=== PATIENT | female | born 1995 | race Caucasian/White ===

== ENCOUNTER 2019-01-07 03:05 | Emergency (ER) | payer OTHER, SELFPAY ==
[2019-01-07 04:12] VITALS: BP 130/80; PULSE 80; TEMP 36.6; O2SAT 98; BMI 24.2
[2019-01-07 04:18] VITALS: BP 130/80; PULSE 80; TEMP 36.6; O2SAT 98; BMI 24.2
[2019-01-07 05:38] VITALS: BP 133/88; PULSE 80; RESP 20; O2SAT 98
--- NOTE | 2019-01-07 05:42 | ED.SKABFB ---
HPI - Skin/Abscess/Foreign Bdy General Chief complaint: Extremity Injury, Upper Stated complaint: spider bite right forearm Time Seen by Provider: 01/07/19 05:42 Source: patient Mode of arrival: ambulatory Limitations: no limitations History of Present Illness HPI narrative: Patient is a 23-year-old female who presents with right forearm spider bite. She says she was asleep woke up with a spider bit her. They were actually able to catch the spider and they brought in. Does not appear to be a brown recluse or a black . She has pain at the site of puncture. There is no erythema small bruise. complaint: lesion Onset (ago): minute(s) Location: RUE Related Data Allergies Allergy/AdvReac Type Severity Reaction Status Date / Time No Known Drug Allergies Allergy Verified 01/07/19 04:14 Review of Systems Review of Systems GENERAL: Denies chills,fever HEENT: Denies throat pain RESPIRATORY: Denies dyspnea, cough, wheezing CARDIOVASCULAR: Denies chest pain, palpitations GASTROINTESTINAL: Denies nausea, vomiting MUSCULOSKELETAL: Denies extremity pain, injury SKIN: See HPI NEUROLOGIC: Denies weakness, dizziness, headache, numbness 8 point review of systems is negative except for those stated above and HPI PFSH Medical History Patient denies significant medical history (Acute) Social History Smoking Status: Never smoker alcohol intake: never substance use type: does not use Social History Smoking Status: Never smoker alcohol intake: never substance use type: does not use Exam Initial Vital Signs Initial Vital Signs: Vital Signs Temperature 98 F 01/07/19 04:12 Pulse Rate 80 01/07/19 04:12 Blood Pressure 130/80 01/07/19 04:12 Pulse Oximetry 98 01/07/19 04:12 GENERAL: Well-appearing, well-nourished and in no acute distress. CARDIOVASCULAR: peripheral pulses in tact, cap refill <2 sec RESPIRATORY: No respiratory distress, speaks in full sentences without difficulty EXTREMITIES: Normal range of motion, no clubbing or edema. Neurovascularly intact NEUROLOGICAL: Cranial nerves II through XII grossly intact. Normal gait and speech. SKIN: Right forearm small contusion were spider bit her. No erythema no fluctuation no streaking Course Vital Signs - 8 hr 01/07/19 04:12 01/07/19 04:18 01/07/19 05:38 Temperature 98 F 98 F Pulse Rate 80 80 80 Respiratory Rate 20 Blood Pressure 130/80 130/80 Blood Pressure [Right Arm] 133/88 Pulse Oximetry 98 98 98 Discharge Plan Departure Patient Disposition: Home Clinical Impression: Insect bite Qualifiers: Encounter type: initial encounter Site of insect bite: forearm Laterality: right Qualified Code(s): S50.861A - Insect bite (nonvenomous) of right forearm, initial encounter Instructions: Insect Bites and Stings Activity Restrictions/Additional Instructions: *You have been diagnosed with insect bite *What to do: Ice 20 min at a time if needed to help with swelling, elevate also to help with swelling *Continue to take medications as directed Motrin 600 mg every 6-8 hours needed for pain *Follow up with your primary care provider in 2-3 days *Return to ER if you should have increasing redness, increasing pain, weakness in hand or any new, worsening or concerning symptoms Referrals: [facility] [Provider Group]
--- NOTE | 2019-01-07 06:59 | PC.NURSE ---
SHE WAS BIT BY A SPIDER AT JUST BEFORE ARRIVAL HERE.HER RIGHT FOREARM HAS AN AREA OF SLIGHT PINK DISCOLORATION.NO DIFFICULTY BREATHING OR SWALLOWING.
== END 2019-01-07 05:57 | disposition home or self-care (01) ==
PROVIDERS: Emergency Provider Emergency Medicine
DX: S50.861A Insect bite (nonvenomous) of right forearm, initial encounter (principal)
CPT/HCPCS: 99282

== ENCOUNTER 2020-01-11 11:09 | Emergency (ER) | payer OTHER, SELFPAY ==
[2020-01-11 11:15] VITALS: BP 149/76; PULSE 73; RESP 20; TEMP 35.8; O2SAT 99; BMI 30.7
--- NOTE | 2020-01-11 11:25 | DI.RAD.S_ITS ---
PROCEDURE: XR ACUTE ABDOMEN SERIES INDICATIONS: abd pain TECHNIQUE: One view chest and two views of the abdomen were acquired. COMPARISON: [facility], CT, IVP (ABD & PEL WWO CONTRAST), 01/06/2013, 12:59. FINDINGS: Surgical changes and devices: None. Chest: Lungs are clear. Heart size is normal. No pleural effusions. No pneumoperitoneum. Abdomen: Bowel gas pattern is normal. No suspicious calcifications. Visualized solid organ contours appear normal. Bones: No suspicious bony lesions. IMPRESSION: No acute cardiopulmonary abnormality. Nonobstructive bowel gas pattern. Dictated by: Henok Young M.D. on 01/11/2020 at 12:19 Approved by: Henok Young M.D. on 01/11/2020 at 12:21
--- NOTE | 2020-01-11 11:28 | ED.ABDPAIN ---
HPI - Abdominal Pain <MIRTA Jung - Last Filed: 01/11/20 17:08> General Chief Complaint: Abdominal Pain Stated Complaint: throwing up for week,acute stomach pain Time Seen by Provider: 01/11/20 11:11 Source: patient and family Mode of arrival: Ambulatory Limitations: no limitations History of Present Illness HPI narrative: The patient is a 24-year-old female nonsmoker with history of abdominal pain who presents with a chief complaint of 6 months of nausea vomiting and epigastric pain. She states that has been worse over the past week. She has previously diagnosed with an ulcer, has an order for an endoscope pending and she has not followed that yet. She has tried heat, Protonix at home. She has not taken anything for nausea. She denies any diarrhea or constipation. She states she is not able to keep anything down. She has not been taking her Protonix. She complains of dysuria for the past week, denies possibility of . States that her pain is in the epigastric area, but then encompasses her entire abdomen. She states it radiates to her back. She denies any chest pain or shortness of breath. She has not followed up with primary care provider the past week. She states that she was seen at [facility] a month ago for similar complaints. She denies any history of abdominal surgeries, states she does have a history of ovarian cyst. Related Data Home Medications Medication Instructions Recorded Confirmed bupropion HCl [Wellbutrin XL] 300 mg PO QAM 01/11/20 01/11/20 pantoprazole [Protonix] 20 mg PO DAILY 01/11/20 01/11/20 sertraline 25 mg PO DAILY 01/11/20 01/11/20 Previous Rx's Medication Instructions Recorded nitrofurantoin monohyd/m-cryst 100 mg PO Q12H 7 Days #14 cap 01/11/20 [Macrobid] ondansetron 4 mg PO Q6H PRN #14 tab 01/11/20 sucralfate [Carafate] 10 ml PO QACHS 10 Days #400 ml 01/11/20 Allergies Allergy/AdvReac Type Severity Reaction Status Date / Time Androgenic Anabolic Steroid AdvReac Verified 01/11/20 11:15 Review of Systems <MIRTA Jung - Last Filed: 01/11/20 17:08> Review of Systems Narrative: GENERAL: Denies chills, fatigue, malaise, fever, sweats. HEENT: Denies sinus pain, ear pain, sore throat, difficulty swallowing, dizziness. RESPIRATORY: Denies dyspnea, cough, wheezing, hemoptysis, sputum. CARDIOVASCULAR: Denies chest pain, palpitations, orthopnea, edema, GASTROINTESTINAL: See HPI : See HPI MUSCULOSKELETAL: denies weakness, joint pain, or bony pain SKIN: Denies rash, skin lesions, or other NEUROLOGIC: Denies weakness, headache, numbness, change in speech, confusion, seizures, incoordination. PSYCHIATRIC: No concerning psychosocial issues. 12 point review of systems is negative except for those stated above Patient History <MIRTA Jung - Last Filed: 01/11/20 17:08> Medical History (Updated 01/11/20 @ 15:35 by MIRTA Jung) History of ovarian cyst (Acute) Nausea and vomiting in adult (Acute) Patient denies significant medical history (Acute) Surgical History (Updated 01/11/20 @ 11:32 by MIRTA Jung) Hx of tonsillectomy (Acute) Social History (Updated 01/07/19 @ 05:45 by Suha Mata DO) Smoking Status: Never smoker alcohol intake: never substance use type: does not use Smoking Status: Never smoker alcohol intake frequency: 0-2 drinks per day Substance Use Type: does not use Exam <MIRTA Jung - Last Filed: 01/11/20 17:08> Narrative Exam Narrative: GENERAL: This is a well-nourished, well-developed patient, appears uncomfortable HEAD: Atraumatic. Normocephalic. No temporal or scalp tenderness. EYES: Pupils equal round and reactive. Extraocular motions intact. No scleral icterus. No injection or drainage. ENT: Nose without bleeding, purulent drainage or septal hematoma. Throat without erythema, tonsillar hypertrophy or exudate. Uvula midline. Airway patent. NECK: Trachea midline. No JVD or lymphadenopathy. Supple, nontender, no meningeal signs. CARDIOVASCULAR: Regular rate and rhythm RESPIRATORY: Clear to auscultation. Breath sounds equal bilaterally. No wheezes, rales, or rhonchi. No cough. No increased respiratory effort. No accessory muscle use. GASTROINTESTINAL: Abdomen soft, diffusely tender to palpation all 4 quadrants. Significant tenderness to epigastric palpation., nondistended. No hepato-splenomegaly, or palpable masses. No guarding. Active bowel sounds all 4 quadrants EXTREMITIES: No clubbing, cyanosis, or edema. No joint tenderness, effusion, or edema noted. BACK: Nontender without deformity or crepitance. No flank tenderness. NEURO: AOx3. SKIN: No rash or erythema on visible skin Initial Vital Signs Initial Vital Signs: Vital Signs Temperature 96.4 F L 01/11/20 11:15 Pulse Rate 73 01/11/20 11:15 Respiratory Rate 01/11/20 11:15 Blood Pressure 149/76 H 01/11/20 11:15 Pulse Oximetry 99 01/11/20 11:15 <Antonio Kim DO - Last Filed: 01/11/20 17:36> Initial Vital Signs Initial Vital Signs: Vital Signs Temperature 96.4 F L 01/11/20 11:15 Pulse Rate 73 01/11/20 11:15 Respiratory Rate 01/11/20 11:15 Blood Pressure 149/76 H 01/11/20 11:15 Pulse Oximetry 99 01/11/20 11:15 Course <MIRTA Jung - Last Filed: 01/11/20 17:08> Orders Ordered: ED Orders 01/11/20 11:23 EKG-12 Lead Stat 01/11/20 11:25 XR acute abdomen series Stat 01/11/20 11:37 Amylase Stat Complete Blood Count AUTO DIFF Stat Comprehensive Metabolic Panel Stat Lipase Stat 01/11/20 12:35 Urine Culture Stat Urine Microscopic Stat 01/11/20 13:05 CT abdomen pelvis w con Stat Discontinued Medications Al Hydrox/Mg Hydrox/Simethicone 20 ml/ Lidocaine HCl 15 ml 0 ml PO NOW ONE Stop: 01/11/20 12:36 Last Admin: 01/11/20 12:43 Dose: 35 ml Documented by: RENÉ Sodium Chloride (Normal Saline 0.9%) 1,000 mls @ 1,000 mls/hr IV BOLUS ONE Stop: 01/11/20 12:32 Last Infusion: 01/11/20 14:17 Dose: 0 mls/hr Documented by: Admin: 01/11/20 11:58 Dose: 1,000 mls/hr Documented by: RENÉ Ketorolac Tromethamine (Toradol) 30 mg IV NOW ONE Stop: 01/11/20 14:48 Last Admin: 01/11/20 14:52 Dose: 30 mg Documented by: RENÉ Metoclopramide HCl (Reglan) 10 mg IV NOW ONE Stop: 01/11/20 13:20 Ondansetron HCl (Zofran) 4 mg IV NOW ONE Stop: 01/11/20 11:24 Last Admin: 01/11/20 12:04 Dose: 4 mg Documented by: RENÉ Ondansetron HCl (Zofran) 4 mg IV NOW ONE Stop: 01/11/20 12:49 Last Admin: 01/11/20 14:13 Dose: Not Given Documented by: RENÉ Pantoprazole Sodium (Protonix) 40 mg IV NOW ONE Stop: 01/11/20 11:25 Last Admin: 01/11/20 12:04 Dose: 40 mg Documented by: RENÉ Sucralfate (Carafate) 1 gm PO NOW ONE Stop: 01/11/20 13:20 Last Admin: 01/11/20 13:43 Dose: 1 gm Documented by: RENÉ Vital Signs Vital signs: Vital Signs - 8 hr 01/11/20 11:15 01/11/20 13:22 01/11/20 15:49 Temperature 96.4 F L Pulse Rate 73 72 66 Respiratory Rate 20 16 16 Blood Pressure 149/76 H 141/83 H Blood Pressure [Right Arm] 150/80 H Pulse Oximetry 99 100 99 <Antonio Kim DO - Last Filed: 01/11/20 17:36> Orders Ordered: ED Orders 01/11/20 11:23 EKG-12 Lead Stat 01/11/20 11:25 XR acute abdomen series Stat 01/11/20 11:37 Amylase Stat Complete Blood Count AUTO DIFF Stat Comprehensive Metabolic Panel Stat Lipase Stat 01/11/20 12:35 Urine Culture Stat Urine Microscopic Stat 01/11/20 13:05 CT abdomen pelvis w con Stat Discontinued Medications Al Hydrox/Mg Hydrox/Simethicone 20 ml/ Lidocaine HCl 15 ml 0 ml PO NOW ONE Stop: 01/11/20 12:36 Last Admin: 01/11/20 12:43 Dose: 35 ml Documented by: RENÉ Sodium Chloride (Normal Saline 0.9%) 1,000 mls @ 1,000 mls/hr IV BOLUS ONE Stop: 01/11/20 12:32 Last Infusion: 01/11/20 14:17 Dose: 0 mls/hr Documented by: Admin: 01/11/20 11:58 Dose: 1,000 mls/hr Documented by: RENÉ Ketorolac Tromethamine (Toradol) 30 mg IV NOW ONE Stop: 01/11/20 14:48 Last Admin: 01/11/20 14:52 Dose: 30 mg Documented by: RENÉ Metoclopramide HCl (Reglan) 10 mg IV NOW ONE Stop: 01/11/20 13:20 Ondansetron HCl (Zofran) 4 mg IV NOW ONE Stop: 01/11/20 11:24 Last Admin: 01/11/20 12:04 Dose: 4 mg Documented by: RENÉ Ondansetron HCl (Zofran) 4 mg IV NOW ONE Stop: 01/11/20 12:49 Last Admin: 01/11/20 14:13 Dose: Not Given Documented by: RENÉ Pantoprazole Sodium (Protonix) 40 mg IV NOW ONE Stop: 01/11/20 11:25 Last Admin: 01/11/20 12:04 Dose: 40 mg Documented by: RENÉ Sucralfate (Carafate) 1 gm PO NOW ONE Stop: 01/11/20 13:20 Last Admin: 01/11/20 13:43 Dose: 1 gm Documented by: RENÉ Vital Signs Vital signs: Vital Signs - 8 hr 01/11/20 11:15 01/11/20 13:22 01/11/20 15:49 Temperature 96.4 F L Pulse Rate 73 72 66 Respiratory Rate 20 16 16 Blood Pressure 149/76 H 141/83 H Blood Pressure [Right Arm] 150/80 H Pulse Oximetry 99 100 99 MDM - Abdominal Pain <MIRTA Jung - Last Filed: 01/11/20 17:08> Lab Data Result diagrams: 01/11/20 11:37 01/11/20 11:37 Labs: Lab Results 01/11/20 01/11/20 01/11/20 Range/Units 11:37 11:37 12:35 WBC 7.4 (4.5-11.0) X10^3/uL RBC 4.50 (4.0-5.2) X10^6/uL Hgb 13.2 (12.0-16.0) g/dL Hct 38.7 (36-46) % MCV 86.1 (80-100) fL MCH 29.4 (26-34) PG MCHC 34.2 (30-36) % RDW 12.8 (11.6-14.8) % Plt Count 360 (150-400) X10^3/uL Neut % (Auto) 67.1 (50-75) % Lymph % (Auto) 25.8 (25-40) % Galax % (Auto) 6.7 (3-14) % Eos % (Auto) 0.0 L (2-4) % Baso % (Auto) 0.4 (0-2) % Neut # (Auto) 4900 (1662-2033) /uL Lymph # (Auto) 1900 (1441-1089) /uL Galax # (Auto) 500 (0-900) /uL Eos # (Auto) 0 (0-450) /uL Baso # (Auto) 0 (0-100) /uL Sodium 137 (137-145) mmol/L Potassium 3.7 (3.4-5.1) mmol/L Chloride 106 (98-107) mmol/L Carbon Dioxide 23 (22-32) mmol/L BUN 10 (7-17) mg/dL Creatinine 0.55 (0.52-1.04) mg/dL Estimated GFR > 60.0 (>60) mL/min BUN/Creatinine Ratio 18.2 (6-22) Glucose 98 (70-100) mg/dL Calcium 9.4 (8.4-10.2) mg/dL Total Bilirubin 0.8 (0.2-1.3) mg/dL AST 25 (14-36) IU/L ALT 17 (<35) IU/L Alkaline Phosphatase 74 (38-126) U/L Total Protein 7.9 (6.3-8.2) g/dL Albumin 4.6 (3.5-5.0) g/dL Globulin 3.3 (1.7-4.1) g/dL Albumin/Globulin Ratio 1.4 (1.0-2.8) Amylase 49 (30-110) U/L Lipase 32 (23-300) U/L Urine RBC 10-30/hpf H (0-5/HPF) Urine WBC 1-5/hpf (0-5/HPF) Ur Squamous Epith Cells 1-5 /hpf (0-5/HPF) Urine Bacteria Moderate (10-30) H (None) Ur Culture Indicated? Specimen cultured Point of care testing: Point of Care Testing Test Results Negative Urine Dip Bedside Urine Glucose Negative Bedside Urine Bilirubin - Negative Bedside Urine Ketone + 15 Urine Specific Welch 1.015 Bedside Urine Occult Blood ++ Bedside Urine pH 7.0 Bedside Urine Protein +/- 15 Bedside Urine Urobilinogen - Negative Bedside Urine Nitrite - Negative Bedside Urine Leukocytes +/- 15 Esterase Imaging Data Abdominal x-ray: Radiologist's Impression: [address] [place] [id number] XRay Report Signed Patient: Uzma Roy [facility]#: [id number] : 1995Acct:[id number] Age/Sex: 24 / FDate of Service: 01/11/20 Loc: ED Accession Number: [id number] Procedure: XR acute abdomen series Ordering Provider: Bisi Clements PROCEDURE: XR ACUTE ABDOMEN SERIES INDICATIONS: abd pain TECHNIQUE: One view chest and two views of the abdomen were acquired. COMPARISON: [facility], CT, IVP (ABD & PEL WWO CONTRAST), 01/06/2013, 12:59. FINDINGS: Surgical changes and devices: None. Chest: Lungs are clear. Heart size is normal. No pleural effusions. No pneumoperitoneum. Abdomen: Bowel gas pattern is normal. No suspicious calcifications. Visualized solid organ contours appear normal. Bones: No suspicious bony lesions. IMPRESSION: No acute cardiopulmonary abnormality. Nonobstructive bowel gas pattern. Dictated by: Henok Young M.D. on 01/11/2020 at 12:19 Approved by: Henok Young M.D. on 01/11/2020 at 12:21 CT scan - abdomen/pelvis: Radiologist's Impression: [address] [address] [address] Scan Report Signed Patient: Uzma Roy [facility]#: [id number] : 1995Acct:[id number] Age/Sex: 24 / FDate of Service: 01/11/20 Loc: ED Accession Number: [id number] Procedure: CT abdomen pelvis w con Ordering Provider: Bisi Clements PROCEDURE: CT ABDOMEN PELVIS W CON INDICATIONS: epigastric pain, vomiting TECHNIQUE: After the administration of intravenous contrast, 5 mm thick sections acquired from the diaphragm to the symphysis. 5 mm coronal and sagittal reformats were acquired. For radiation dose reduction, the following was used: automated exposure control, adjustment of mA and/or kV according to patient size. COMPARISON: None. FINDINGS: Image quality: Excellent. ABDOMEN: Lung bases: Lung bases are clear. Heart size is normal. Solid organs: Liver is normal in size and enhancement. Gallbladder is unremarkable. Biliary system is non dilated. Pancreas enhances normally. Spleen is normal in size and enhancement. No adrenal nodules. Kidneys demonstrate normal size and enhancement, without hydronephrosis. Peritoneum and bowel: Bowel loops demonstrate normal wall thickness and caliber. No free fluid or air. The appendix is normal in caliber. Nodes and vessels: No retroperitoneal or mesenteric adenopathy by size criteria. Aorta and inferior vena cava are normal in size. Right hepatic artery is replaced to the SMA, variant. Miscellaneous: No ventral hernias. PELVIS: Genitourinary: Bladder is partially decompressed. Uterus is unremarkable. No free fluid. Miscellaneous: No inguinal hernias or adenopathy. Bones: No suspicious bony lesions. No vertebral body compression fractures. IMPRESSION: No acute inflammatory process identified. No free fluid. No bowel obstruction. Dictated by: Henok Young M.D. on 01/11/2020 at 13:37 Approved by: Henok Young M.D. on 01/11/2020 at 13:52 ECG Data Attestation: I personally reviewed and interpreted this ECG as follows: Interpretation: Ventricular rate 64. P.r. interval 158. QRS 94. No ectopy noted. Viewed by Dr. Judy PARRA Narrative Medical decision making narrative: The patient is a 24-year-old female who presents with a chief complaint of epigastric pain as well as nausea and vomiting, inability keep down fluids. She has normal images, grossly normal lab work, given the significance of pain on exam, I did obtain a CT which showed no acute findings. She feels much improved after the above-stated therapies. She is able to tolerate p.o. fluid and foods. I discussed at length dietary modifications, monitoring stress, decreasing acid in diet. Discussed at length the importance of following up with primary care provider. She does have signs of urinary tract infection with leukocyte esterase and bacteria in her urine as well as dysuria, so we started her on antibiotics. Urine cultures pending at this time. Patient has no questions or concerns upon discharge and states understanding return precautions as well as follow-up care. <Antonio Kim, DO - Last Filed: 01/11/20 17:36> Lab Data Labs: Lab Results 01/11/20 01/11/20 01/11/20 Range/Units 11:37 11:37 12:35 WBC 7.4 (4.5-11.0) X10^3/uL RBC 4.50 (4.0-5.2) X10^6/uL Hgb 13.2 (12.0-16.0) g/dL Hct 38.7 (36-46) % MCV 86.1 (80-100) fL MCH 29.4 (26-34) PG MCHC 34.2 (30-36) % RDW 12.8 (11.6-14.8) % Plt Count 360 (150-400) X10^3/uL Neut % (Auto) 67.1 (50-75) % Lymph % (Auto) 25.8 (25-40) % Galax % (Auto) 6.7 (3-14) % Eos % (Auto) 0.0 L (2-4) % Baso % (Auto) 0.4 (0-2) % Neut # (Auto) 4900 (1678-3871) /uL Lymph # (Auto) 1900 (1080-4279) /uL Galax # (Auto) 500 (0-900) /uL Eos # (Auto) 0 (0-450) /uL Baso # (Auto) 0 (0-100) /uL Sodium 137 (137-145) mmol/L Potassium 3.7 (3.4-5.1) mmol/L Chloride 106 (98-107) mmol/L Carbon Dioxide 23 (22-32) mmol/L BUN 10 (7-17) mg/dL Creatinine 0.55 (0.52-1.04) mg/dL Estimated GFR > 60.0 (>60) mL/min BUN/Creatinine Ratio 18.2 (6-22) Glucose 98 (70-100) mg/dL Calcium 9.4 (8.4-10.2) mg/dL Total Bilirubin 0.8 (0.2-1.3) mg/dL AST 25 (14-36) IU/L ALT 17 (<35) IU/L Alkaline Phosphatase 74 (38-126) U/L Total Protein 7.9 (6.3-8.2) g/dL Albumin 4.6 (3.5-5.0) g/dL Globulin 3.3 (1.7-4.1) g/dL Albumin/Globulin Ratio 1.4 (1.0-2.8) Amylase 49 (30-110) U/L Lipase 32 (23-300) U/L Urine RBC 10-30/hpf H (0-5/HPF) Urine WBC 1-5/hpf (0-5/HPF) Ur Squamous Epith Cells 1-5 /hpf (0-5/HPF) Urine Bacteria Moderate (10-30) H (None) Ur Culture Indicated? Specimen cultured Point of care testing: Point of Care Testing Test Results Negative Urine Dip Bedside Urine Glucose Negative Bedside Urine Bilirubin - Negative Bedside Urine Ketone + 15 Urine Specific Welch 1.015 Bedside Urine Occult Blood ++ Bedside Urine pH 7.0 Bedside Urine Protein +/- 15 Bedside Urine Urobilinogen - Negative Bedside Urine Nitrite - Negative Bedside Urine Leukocytes +/- 15 Esterase Discharge Plan Departure Patient Disposition: Home Clinical Impression: Nausea and vomiting in adult Abdominal pain Qualifiers: Abdominal location: epigastric Qualified Code(s): R10.13 - Epigastric pain UTI (urinary tract infection) Qualifiers: Urinary tract infection type: site unspecified Hematuria presence: with hematuria Qualified Code(s): N39.0 - Urinary tract infection, site not specified Discharge Date/Time: 01/11/20 15:48 Instructions: DI for Urinary Tract Infection (UTI), DI for Abdominal Pain-Adult, DI for Nausea -- Adult, DI for Vomiting -- Adult Activity Restrictions/Additional Instructions: Thank you for trusting us with your care today. I sent 3 prescriptions to [facility] in [place]. One is an antibiotic for your urinary tract infection. Please take the whole course. Urine cultures pending at this time. If we need to change antibiotics we will call you. I also sent him prescriptions of nausea medications as well as Carafate, which helps reduce the acid in her stomach. Please be very careful regarding your diet. Please be careful for acidic foods, spicy foods, deep fried foods, fatty foods as these can all irritate her stomach. Also be careful with stress. Please follow-up with primary care provider in the next few days. Please come back to the emergency department for any acute concerns such as inability keep down fluids, abdominal pain with fever etcetera Prescriptions: New ondansetron 4 mg tablet,disintegrating 4 mg PO Q6H PRN (Reason: nausea and vomiting) Qty: 14 RF: 0 sucralfate [Carafate] 100 mg/mL suspension 10 ml PO QACHS 10 Days Qty: 400 RF: 0 nitrofurantoin monohyd/m-cryst [Macrobid] 100 mg capsule 100 mg PO Q12H 7 Days Qty: 14 RF: 0 No Action pantoprazole [Protonix] 20 mg Tablet,Delayed Release (Dr/Ec) 20 mg PO DAILY RF: 0 sertraline 25 mg Tablet 25 mg PO DAILY RF: 0 bupropion HCl [Wellbutrin XL] 300 mg Tablet Extended Release 24 Hr 300 mg PO QAM RF: 0 Referrals: Chacha Beckford PA-C [Non-Staff] - Stand Alone Forms: Work Release Note ED Sign-out <MIRTA Jung - Last Filed: 01/11/20 17:08> Cosign ED Attending Mariia Attestation: I was immediately available in the department for consultation. This documentation has been reviewed and I agree with assessment and plan. Supervised by MIRTA Jung <Antonio Kim DO - Last Filed: 01/11/20 17:36> Cosign ED Attending Mariia Attestation: Dr Kim Co-Sign Statement: I was available for consultation during this patient's emergency department visit. This chart is signed by myself for administrative purposes only. I did not have direct contact with this patient during this visit. They were seen independently by the APC.
[2020-01-11 11:46] LABS: Add Manual Diff / Slide Review NO; Basophils Absolute Auto 0 /uL (0-100); Basophils Percent Auto 0.4 % (0-2); Eosinophils Absolute Auto 0 /uL (0-450); Hematocrit 38.7 % (36-46); Hemoglobin 13.2 g/dL (12.0-16.0); Lymphocytes Absolute Auto 1900 /uL (1100-4500); Lymphocytes Percent Auto 25.8 % (25-40); Mean Corpuscular HGB Conc 34.2 % (30-36); Mean Corpuscular Hemoglobin 29.4 PG (26-34); Mean Corpuscular Volume 86.1 fL (80-100); Monocytes Absolute Auto 500 /uL (0-900); Monocytes Percent Auto 6.7 % (3-14); Neutrophils Absolute Auto 4900 /uL (1500-7000); Neutrophils Percent Auto 67.1 % (50-75); Platelet Count 360 X10^3/uL (150-400); Red Cell Distribution Width 12.8 % (11.6-14.8); White Blood Cell Count 7.4 X10^3/uL (4.5-11.0)
[2020-01-11] MEDS: SODIUM CHLORIDE 0.9% 1,000 ML 1000 ML IV (11:58)
[2020-01-11 12:03] LABS: Alanine Aminotransferase 17 IU/L (<35); Albumin 4.6 g/dL (3.5-5.0); Albumin Globulin Ratio 1.4 (1.0-2.8); Alkaline Phosphatase 74 U/L (38-126); Amylase 49 U/L (30-110); Aspartate Aminotransferase 25 IU/L (14-36); BUN Creatinine Ratio 18.2 (6-22); Bilirubin Total 0.8 mg/dL (0.2-1.3); Blood Urea Nitrogen 10 mg/dL (7-17); Calcium 9.4 mg/dL (8.4-10.2); Carbon Dioxide 23 mmol/L (22-32); Chloride 106 mmol/L (98-107); Estimated Glomerular Filt Rate > 60.0 mL/min (>60); Globulin 3.3 g/dL (1.7-4.1); Glucose 98 mg/dL (70-100); HEMOLYSIS < 15 (0-50); Lipase 32 U/L (23-300); Potassium 3.7 mmol/L (3.4-5.1); Sodium 137 mmol/L (137-145); Total Protein 7.9 g/dL (6.3-8.2)
[2020-01-11] MEDS: ONDANSETRON 4 MG/2 ML INJ IV (12:04)
[2020-01-11] MEDS: PANTOPRAZOLE 40 MG VIAL IV (12:04)
[2020-01-11] MEDS: MAG HYDROX/ALUMINUM/SIMETH SUS 20 ML, LIDOCAINE VISCOUS 2% 15 ML PO (12:43)
--- NOTE | 2020-01-11 13:05 | DI.CT.S_ITS ---
PROCEDURE: CT ABDOMEN PELVIS W CON INDICATIONS: epigastric pain, vomiting TECHNIQUE: After the administration of intravenous contrast, 5 mm thick sections acquired from the diaphragm to the symphysis. 5 mm coronal and sagittal reformats were acquired. For radiation dose reduction, the following was used: automated exposure control, adjustment of mA and/or kV according to patient size. COMPARISON: None. FINDINGS: Image quality: Excellent. ABDOMEN: Lung bases: Lung bases are clear. Heart size is normal. Solid organs: Liver is normal in size and enhancement. Gallbladder is unremarkable. Biliary system is non dilated. Pancreas enhances normally. Spleen is normal in size and enhancement. No adrenal nodules. Kidneys demonstrate normal size and enhancement, without hydronephrosis. Peritoneum and bowel: Bowel loops demonstrate normal wall thickness and caliber. No free fluid or air. The appendix is normal in caliber. Nodes and vessels: No retroperitoneal or mesenteric adenopathy by size criteria. Aorta and inferior vena cava are normal in size. Right hepatic artery is replaced to the SMA, variant. Miscellaneous: No ventral hernias. PELVIS: Genitourinary: Bladder is partially decompressed. Uterus is unremarkable. No free fluid. Miscellaneous: No inguinal hernias or adenopathy. Bones: No suspicious bony lesions. No vertebral body compression fractures. IMPRESSION: No acute inflammatory process identified. No free fluid. No bowel obstruction. Dictated by: Henok Young M.D. on 01/11/2020 at 13:37 Approved by: Henok Young M.D. on 01/11/2020 at 13:52
[2020-01-11 13:20] LABS: RBC Urine 10-30/HPF (0-5/HPF); WBC Urine 1-5/HPF (0-5/HPF)
[2020-01-11 13:21] LABS: Bacteria Urine Moderate (10-30); Culture Indicated Urine Specimen Cultured; Squamous Epithelial Cell Urine 1-5 /HPF (0-5/HPF)
[2020-01-11 13:22] VITALS: BP 150/80; PULSE 72; RESP 16; O2SAT 100
[2020-01-11] MEDS: SUCRALFATE 1 GM/10 ML ORAL SUSP PO (13:43)
[2020-01-11] MEDS: KETOROLAC 60 MG/2 ML VIAL 30 MG IV (14:52)
[2020-01-11 15:49] VITALS: BP 141/83; PULSE 66; RESP 16; O2SAT 99
== END 2020-01-11 15:48 | disposition home or self-care (01) ==
PROVIDERS: Emergency Provider Nurse Practitioner Family
DX: R10.13 Epigastric pain (principal); N39.0 Urinary tract infection, site not specified; R11.2 Nausea with vomiting, unspecified
CPT/HCPCS: 36415; 74022; 74177; 80053; 81003; 81015; 81025; 82150; 83690; 85025; 87086; 93005; 96361; 96374; 96375; 99284; 99285; C9113; J1885; J2405; Q9967

== ENCOUNTER 2020-01-12 07:26 | Emergency (ER) | payer OTHER, SELFPAY ==
[2020-01-12 07:36] VITALS: BP 136/81; PULSE 69; RESP 20; TEMP 36.9; BMI 29.9
--- NOTE | 2020-01-12 08:08 | PC.NURSE ---
Patient agreeable to have ultrasound and IM injection of Toradol for pain. Ultrasound ordered. Mother at bedside and supportive.
--- NOTE | 2020-01-12 08:11 | DI.US.S_ITS ---
PROCEDURE: US PELVIC COMPLETE INDICATIONS: SEVERE LLQ PAIN TECHNIQUE: Real-time scanning was performed of the pelvic organs, with image documentation. Additional endovaginal scanning was necessary due to incomplete visualization of the adnexal and endometrial structures by transabdominal scanning. COMPARISON: None. FINDINGS: Transabdominal scanning: Limited scanning through the kidneys shows no hydronephrosis. No pathologic free abdominal or pelvic fluid. Endovaginal scanning: Uterus: Uterus is normal in size at 5.3 x 3.2 x 5.1 cm. The endometrium measures 6 mm in combined thickness. Ovaries: Right ovary measures 1.5 x 2.6 x 1.9 cm. Left ovary measures 2.2 x 2.9 x 3.1 cm. Color flow is noted in both ovaries. No abnormal adnexal masses or fluid collections. IMPRESSION: Unremarkable pelvic ultrasound. Dictated by: Jerry Cash M.D. on 01/12/2020 at 9:00 Approved by: Jerry Cash M.D. on 01/12/2020 at 9:08
[2020-01-12] MEDS: KETOROLAC 60 MG/2 ML VIAL IM (08:18)
[2020-01-12 09:01] VITALS: BP 127/78; PULSE 68; RESP 18; TEMP 37.2; O2SAT 98
--- NOTE | 2020-01-12 09:02 | PC.NURSE ---
Patient ambulating to the bathroom without difficulty, steady gait. VSS. Awaiting ultrasound results.
--- NOTE | 2020-02-09 23:32 | ED.ABDPAIN ---
HPI - Abdominal Pain General Chief Complaint: Abdominal Pain Stated Complaint: lower abdominal pain/pelvic area Time Seen by Provider: 01/12/20 07:38 Source: patient and family Mode of arrival: Ambulatory Limitations: no limitations History of Present Illness HPI narrative: 25F nonsmoker with longstanding history of chronic abdominal pain presents with ongoing pain. She was seen and evaluated here last night and had thorough workup including labs, Xray, and CT, all of which were very reassuring. She's been tolerating fluids and denies fever, chills, diarrhea, or vaginal bleeding/discharge. She denies any new symptoms. She has not seen her PCP. She has a scheduled EGD which has been delayed due to the COVID pandemic. She states her pain is there most of the time and seems to be worse with food and movement. Largely today she is the same as she has been and admits that she has come back because the discharge instructions stated she should return if not better. MD complaint: abdominal pain Onset (ago): month(s) Pain Consistency: constant Location: epigastric Severity: moderate Quality: cramping Radiation: none Relieving factors: nothing Exacerbating factors: eating and movement Associated symptoms: nausea and vomiting Related Data Home Medications Medication Instructions Recorded Confirmed bupropion HCl [Wellbutrin XL] 300 mg PO QAM 01/11/20 01/11/20 pantoprazole [Protonix] 20 mg PO DAILY 01/11/20 01/11/20 sertraline 25 mg PO DAILY 01/11/20 01/11/20 Previous Rx's Medication Instructions Recorded nitrofurantoin monohyd/m-cryst 100 mg PO Q12H 7 Days #14 cap 01/11/20 [Macrobid] ondansetron 4 mg PO Q6H PRN #14 tab 01/11/20 sucralfate [Carafate] 10 ml PO QACHS 10 Days #400 ml 01/11/20 ketorolac 10 mg PO Q6H PRN #14 tab 01/12/20 Allergies Allergy/AdvReac Type Severity Reaction Status Date / Time Androgenic Anabolic Steroid AdvReac Verified 01/11/20 11:15 Review of Systems Constitutional Constitutional: Denies chills, Denies fatigue, Denies fever(s), Denies frequent falls, Denies lethargy and Denies weakness Eyes Eyes: Denies change in vision, Denies eye discharge, Denies irritation and Denies loss of vision ENT Ears, Nose, Mouth, and Throat: Denies change in voice, Denies dizziness, Denies neck pain, Denies sore throat and Denies throat swelling Cardiovascular Cardiovascular: Denies chest pain, Denies irregular heart rhythm, Denies lightheadedness, Denies palpitations, Denies dyspnea, Denies dyspnea on exertion and Denies orthopnea Respiratory Respiratory: Denies cough, Denies dyspnea, Denies dyspnea on exertion and Denies wheezing Gastrointestinal Gastrointestinal: Reports abdominal pain, Denies change in bowel habits, Denies diarrhea, Reports nausea and Reports vomiting Genitourinary Genitourinary: Denies hematuria, Denies flank pain, Denies urinary incontinence and Denies urinary urgency Musculoskeletal Musculoskeletal: Denies back pain, Denies muscle weakness, Denies neck pain, Denies numbness and Denies tingling Integumentary/Breasts Skin/Breast: Denies pruritus, Denies erythema, Denies rash and Denies wounds Neurologic Neurologic: Denies behavioral changes, Denies confusion, Denies dizziness, Denies frequent falls, Denies loss of vision, Denies numbness, Denies tingling and Denies weakness Psychiatric Psychiatric: Denies anxiety, Denies behavioral changes, Denies confusion, Denies depression, Denies homicidal ideation and Denies suicidal ideation Endocrine Endocrine: Denies fatigue, Denies flushing and Denies palpitations Hematologic/Lymphatic Hematologic/Lymphatic: Denies easy bruising Allergic/Immunologic Allergic/Immunologic: Denies urticaria, Denies throat swelling and Denies wheezing Patient History Medical History History of ovarian cyst (Acute) Nausea and vomiting in adult (Acute) Patient denies significant medical history (Acute) Surgical History Hx of tonsillectomy (Acute) Social History Smoking Status: Never smoker alcohol intake: never substance use type: does not use Smoking Status: Never smoker alcohol intake frequency: 0-2 drinks per day Substance Use Type: does not use Exam Narrative Exam Narrative: GENERAL: [25] year old patient appears stated age. Well-nourished, well-developed patient, in mild distress. Seems frustrated HEAD: Atraumatic. Normocephalic. EYES: Pupils equal round and reactive. Extraocular motions intact. No scleral icterus. No injection or drainage. ENT: Nose without bleeding, purulent drainage. Throat without erythema, tonsillar hypertrophy or exudate. Airway patent. NECK: Trachea midline. Non tender CARDIOVASCULAR: Regular rate and rhythm without murmurs, gallops, or rubs. RESPIRATORY: Clear to auscultation. Breath sounds equal bilaterally. No wheezes, rales, or rhonchi. GASTROINTESTINAL: Abdomen soft, tender in the epigastrium, nondistended. EXTREMITIES: No edema or joint tenderness. BACK: Nontender without deformity or crepitance. No flank tenderness. NEURO: AOx3. SKIN: No rash or erythema of visible areas Initial Vital Signs Initial Vital Signs: Vital Signs Temperature 98.5 F 01/12/20 07:36 Pulse Rate 69 01/12/20 07:36 Respiratory Rate 20 01/12/20 07:36 Blood Pressure 136/81 01/12/20 07:36 Course Orders Ordered: Discontinued Medications Ketorolac Tromethamine (Toradol) 60 mg IM NOW ONE Stop: 01/12/20 08:12 Last Admin: 01/12/20 08:18 Dose: 60 mg Documented by: CGAY MDM - Abdominal Pain Imaging Data US - abdomen: Radiologist's Impression: [place] [address] Ultrasound Report Signed Patient: Uzma Roy [facility]#: [id number] : 1995Acct:[id number] Age/Sex: 24 / FDate of Service: 01/12/20 Loc: ED Accession Number: [id number] Procedure: US pelvic complete Ordering Provider: Trae Lance D.O. PROCEDURE: US PELVIC COMPLETE INDICATIONS: SEVERE LLQ PAIN TECHNIQUE: Real-time scanning was performed of the pelvic organs, with image documentation. Additional endovaginal scanning was necessary due to incomplete visualization of the adnexal and endometrial structures by transabdominal scanning. COMPARISON: None. FINDINGS: Transabdominal scanning: Limited scanning through the kidneys shows no hydronephrosis. No pathologic free abdominal or pelvic fluid. Endovaginal scanning: Uterus: Uterus is normal in size at 5.3 x 3.2 x 5.1 cm. The endometrium measures 6 mm in combined thickness. Ovaries: Right ovary measures 1.5 x 2.6 x 1.9 cm. Left ovary measures 2.2 x 2.9 x 3.1 cm. Color flow is noted in both ovaries. No abnormal adnexal masses or fluid collections. IMPRESSION: Unremarkable pelvic ultrasound. Dictated by: Jerry Cash M.D. on 01/12/2020 at 9:00 [facility] Narrative Medical decision making narrative: Patient presents with chronic abdominal pain, no new symptoms and a very thorough examination with reassuring labs and imaging last night. She is tolerating orals, has reassuring vital signs and abdominal ultrasound. We talked about her need to continue to pursue follow-up and that she should follow the instructions regarding her dietary modifications, continue taking her medications and get her EGD. She understands return precautions and has had her questions answered to her apparent satisfaction Discharge Plan Departure Patient Disposition: Home Clinical Impression: Pelvic pain Discharge Date/Time: 01/12/20 09:28 Instructions: DI for Abdominal Pain-Adult Activity Restrictions/Additional Instructions: *You have been diagnosed with [left lower quadrant pain, likely from ovarian cyst. Ultrasound was very reassuring] *What to do: *Take medications as directed: [email or web address] [place] [facility] *Follow up with your primary care provider in 2-3 days, call for an appointment. Let them know you were seen in the Emergency Department and that we ask that you be seen in follow up *Return to ER if you should have any new, worsening or concerning symptoms Prescriptions: New ketorolac 10 mg tablet 10 mg PO Q6H PRN (Reason: pain) Qty: 14 RF: 0 No Action pantoprazole [Protonix] 20 mg Tablet,Delayed Release (Dr/Ec) 20 mg PO DAILY RF: 0 sertraline 25 mg Tablet 25 mg PO DAILY RF: 0 bupropion HCl [Wellbutrin XL] 300 mg Tablet Extended Release 24 Hr 300 mg PO QAM RF: 0 ondansetron 4 mg tablet,disintegrating 4 mg PO Q6H PRN (Reason: nausea and vomiting) Qty: 14 RF: 0 sucralfate [Carafate] 100 mg/mL suspension 10 ml PO QACHS 10 Days Qty: 400 RF: 0 nitrofurantoin monohyd/m-cryst [Macrobid] 100 mg capsule 100 mg PO Q12H 7 Days Qty: 14 RF: 0 Referrals: Analy,GRETCHEN Burnham [Primary Care Provider] -
== END 2020-01-12 09:28 | disposition home or self-care (01) ==
PROVIDERS: Emergency Provider Emergency Medicine; PCP Physician Assistant
DX: R10.2 Pelvic and perineal pain (principal)
CPT/HCPCS: 76830; 76856; 96372; 99283; J1885

== ENCOUNTER 2020-04-05 13:05 | Emergency (ER) | payer OTHER, SELFPAY ==
[2020-04-05 13:20] VITALS: BP 133/84; PULSE 86; RESP 16; TEMP 37.3; O2SAT 97; BMI 27.4
[2020-04-05 13:53] LABS: Add Manual Diff / Slide Review NO; Basophils Absolute Auto 0 /uL (0-100); Basophils Percent Auto 0.5 % (0-2); Eosinophils Absolute Auto 0 /uL (0-450); Eosinophils Percent Auto 0.1 % (2-4); Hematocrit 36.8 % (36-46); Hemoglobin 12.7 g/dL (12.0-16.0); Lymphocytes Absolute Auto 2100 /uL (1100-4500); Lymphocytes Percent Auto 25.2 % (25-40); Mean Corpuscular HGB Conc 34.5 % (30-36); Mean Corpuscular Hemoglobin 29.5 PG (26-34); Mean Corpuscular Volume 85.6 fL (80-100); Monocytes Absolute Auto 600 /uL (0-900); Monocytes Percent Auto 6.8 % (3-14); Neutrophils Absolute Auto 5700 /uL (1500-7000); Neutrophils Percent Auto 67.4 % (50-75); Platelet Count 366 X10^3/uL (150-400); Red Blood Cell Count 4.31 X10^6/uL (4.0-5.2); White Blood Cell Count 8.4 X10^3/uL (4.5-11.0)
--- NOTE | 2020-04-05 13:59 | DI.US.S_ITS ---
PROCEDURE: US ABDOMEN LIMITED INDICATIONS: RUQ PAIN TECHNIQUE: Real-time focused scanning was performed of the abdomen, with image documentation. COMPARISON: [facility], CT, CT ABDOMEN PELVIS W CON, 01/11/2020, 13:00. [facility], CR, XR ACUTE ABDOMEN SERIES, 04/05/2020, 13:58. FINDINGS: The liver is normal in size and demonstrates no focal lesions. No findings of gallstones or sludge are seen. The gallbladder wall is not thickened, measuring 3 mm or less. No specific pericholecystic fluid is seen. The sonographic Holbrook sign is negative. There is no biliary dilatation, the common bile duct measures 5 mm. The pancreas is not well-seen. IMPRESSION: The gallbladder demonstrates a normal sonographic appearance. No biliary dilatation is seen. Note: Concordant preliminary findings given by the cooker syrup upon the completion of the examination to OLGA LIDIA Jung at 3 PM on April 05, 2020. Dictated by: Fidel Miller M.D. on 04/05/2020 at 14:29 Approved by: Fidel Miller M.D. on 04/05/2020 at 14:30
--- NOTE | 2020-04-05 14:00 | DI.RAD.S_ITS ---
PROCEDURE: XR ACUTE ABDOMEN SERIES INDICATIONS: abd pain TECHNIQUE: One view chest and two views of the abdomen were acquired. COMPARISON: [facility], , XR ACUTE ABDOMEN SERIES, 01/11/2020, 11:57. FINDINGS: Surgical changes and devices: None. Chest: Lungs are clear. Heart size is normal. No pleural effusions. No pneumoperitoneum. Abdomen: No air-filled distended small bowel loops are identified demonstrating air-fluid levels. Air and stool are identified within the colon. No suspicious calcifications. Visualized solid organ contours appear normal. Bones: No suspicious bony lesions. IMPRESSION: 1. No bowel obstruction. 2. No acute cardiopulmonary process is evident. Dictated by: Danish Turk M.D. on 04/05/2020 at 13:45 Approved by: Danish Turk M.D. on 04/05/2020 at 13:46
[2020-04-05 14:04] LABS: INR 1.2 (0.9-1.3); Prothrombin Time 13.2 SECONDS (10.1-12.7)
[2020-04-05 14:05] LABS: Amylase 52 U/L (30-110)
[2020-04-05 14:06] LABS: Alanine Aminotransferase 16 IU/L (<35); Albumin 4.4 g/dL (3.5-5.0); Albumin Globulin Ratio 1.6 (1.0-2.8); Alkaline Phosphatase 72 U/L (38-126); Aspartate Aminotransferase 21 IU/L (14-36); BUN Creatinine Ratio 12.5 (6-22); Bilirubin Total 0.5 mg/dL (0.2-1.3); Blood Urea Nitrogen 7 mg/dL (7-17); Calcium 9.5 mg/dL (8.4-10.2); Carbon Dioxide 24 mmol/L (22-32); Chloride 106 mmol/L (98-107); Estimated Glomerular Filt Rate > 60.0 mL/min (>60); Globulin 2.8 g/dL (1.7-4.1); Glucose 98 mg/dL (70-100); HEMOLYSIS 18 (0-50); Lipase 32 U/L (23-300); PTT Partial Thromboplastin Tim 30 SECONDS (26.4-36.2); Potassium 3.9 mmol/L (3.4-5.1); Sodium 138 mmol/L (137-145); Total Protein 7.2 g/dL (6.3-8.2)
[2020-04-05 14:27] LABS: Bacteria Urine None Seen; WBC Urine None Seen (0-5/HPF)
[2020-04-05 14:33] LABS: Culture Indicated Urine Cult Not Indicated; Mucus Urine 2+ (Negative); RBC Urine 1-5/HPF (0-5/HPF); Squamous Epithelial Cell Urine 10-30 /HPF (0-5/HPF)
[2020-04-05 15:20] VITALS: BP 136/87; PULSE 68; RESP 14; O2SAT 98
[2020-04-05] MEDS: SODIUM CHLORIDE 0.9% 1,000 ML 1000 ML IV (15:46)
[2020-04-05] MEDS: SUCRALFATE 1 GM TABLET PO (15:46)
[2020-04-05] MEDS: METOCLOPRAMIDE 10 MG/2 ML INJ IV (15:46)
[2020-04-05] MEDS: MORPHINE 2 MG/ML INJ IV (15:48)
--- NOTE | 2020-04-05 15:55 | ED_ITS ---
HPI - Abdominal Pain <Bisi ANA PAULA ClementsP-BC - Last Filed: 04/05/20 17:23> General Chief Complaint: Abdominal Pain Stated Complaint: stomach pain Time Seen by Provider: 04/05/20 13:28 Source: patient Mode of arrival: Ambulatory Limitations: no limitations History of Present Illness HPI narrative: The patient is a 25-year-old female nonsmoker with history of chronic abdominal pain who presents with a chief complaint of abdominal pain. She states she has had abdominal issues for the past 6 months or so, was supposed to have an EGD, but this got put off due to coronavirus. She denies any fevers, but complains of muscle aches and chills. Denies any dysuria urgency or frequency, but states she is taking doxycycline to be treated for PID. She states that her pain is in her epigastric area radiating to her right upper quadrant. She saw her PCP about 10 days ago, who was concerned about her gallbladder. She denies any possibility of sexually transmitted infection, denies any lower abdominal pain, states it is still in her upper belly area. She is being treated for an ulcer, is taking a PPI. She has not taken anything x-ray to help with the pain today. She does admit to taking 1-2 tabs of ibuprofen for pain, which she states she knows she is not supposed to do. Related Data Home Medications Medication Instructions Recorded Confirmed bupropion HCl [Wellbutrin XL] 300 mg PO QAM 01/11/20 01/11/20 pantoprazole [Protonix] 20 mg PO DAILY 01/11/20 01/11/20 sertraline 25 mg PO DAILY 01/11/20 01/11/20 Previous Rx's Medication Instructions Recorded ondansetron 4 mg PO Q6H PRN #14 tab 01/11/20 ketorolac 10 mg PO Q6H PRN #14 tab 01/12/20 metoclopramide HCl 10 mg PO Q6H PRN #14 tab 04/05/20 ondansetron 4 mg PO Q6H PRN #20 tab 04/05/20 sucralfate [Carafate] 10 ml PO QACHS 10 Days #400 ml 04/05/20 Allergies Allergy/AdvReac Type Severity Reaction Status Date / Time Androgenic Anabolic Steroid AdvReac Verified 06/12/20 13:20 Review of Systems <MIRTA Jung - Last Filed: 04/05/20 17:23> Review of Systems Narrative: GENERAL: Denies chills, fatigue, malaise, fever, sweats. HEENT: Denies sinus pain, ear pain, sore throat, difficulty swallowing, dizziness. RESPIRATORY: Denies dyspnea, cough, wheezing, hemoptysis, sputum. CARDIOVASCULAR: Denies chest pain, palpitations, orthopnea, edema, GASTROINTESTINAL: See HPI : Denies dysuria, frequency, incontinence, hematuria, urinary retention. MUSCULOSKELETAL: denies weakness, joint pain, or bony pain SKIN: Denies rash, skin lesions, or other NEUROLOGIC: Denies weakness, headache, numbness, change in speech, confusion, seizures, incoordination. PSYCHIATRIC: No concerning psychosocial issues. 12 point review of systems is negative except for those stated above Patient History <MIRTA Jung - Last Filed: 04/05/20 17:23> Medical History History of ovarian cyst (Acute) Nausea and vomiting in adult (Acute) Patient denies significant medical history (Acute) Surgical History Hx of tonsillectomy (Acute) Social History Smoking Status: Never smoker alcohol intake: never substance use type: does not use Smoking Status: Never smoker alcohol intake frequency: 0-2 drinks per day Substance Use Type: does not use Exam <MIRTA Jung - Last Filed: 04/05/20 17:23> Narrative Exam Narrative: GENERAL: This is a well-nourished, well-developed patient, in no acute distress HEAD: Atraumatic. Normocephalic. No temporal or scalp tenderness. EYES: Pupils equal round and reactive. Extraocular motions intact. No scleral icterus. No injection or drainage. ENT: Nose without bleeding, purulent drainage or septal hematoma. Throat without erythema, tonsillar hypertrophy or exudate. Uvula midline. Airway patent. NECK: Trachea midline. No JVD or lymphadenopathy. Supple, nontender, no meningeal signs. CARDIOVASCULAR: Regular rate and rhythm RESPIRATORY: Clear to auscultation. Breath sounds equal bilaterally. No wheezes, rales, or rhonchi. No cough. No increased respiratory effort. No accessory m uscle use. GASTROINTESTINAL: Abdomen soft, diffusely tender to palpation with no guarding. Positive Holbrook sign. EXTREMITIES: No clubbing, cyanosis, or edema. No joint tenderness, effusion, or edema noted. BACK: Nontender without deformity or crepitance. No flank tenderness. NEURO: AOx3. SKIN: No rash or erythema on visible skin Initial Vital Signs Initial Vital Signs: Vital Signs Temperature 99.1 F 04/05/20 13:20 Pulse Rate 86 04/05/20 13:20 Respiratory Rate 16 04/05/20 13:20 Blood Pressure 133/84 04/05/20 13:20 Pulse Oximetry 97 04/05/20 13:20 <Nikunj Hernandez MD - Last Filed: 04/06/20 07:17> Initial Vital Signs Initial Vital Signs: Vital Signs Temperature 99.1 F 04/05/20 13:20 Pulse Rate 86 04/05/20 13:20 Respiratory Rate 16 04/05/20 13:20 Blood Pressure 133/84 04/05/20 13:20 Pulse Oximetry 97 04/05/20 13:20 Scores <MIRTA Jung - Last Filed: 04/05/20 17:23> GCS [place] coma scale eye opening: Spontaneous Abdi coma scale verbal response: Orientated [place] coma scale motor response: Obey commands [place] coma scale total score: 15 Course <MIRTA Jung - Last Filed: 04/05/20 17:23> Orders Ordered: Discontinued Medications Diphenhydramine HCl (Benadryl) 50 mg IV NOW ONE Stop: 04/05/20 16:38 Last Admin: 04/05/20 16:46 Dose: 50 mg Documented by: SCANMICHELE Sodium Chloride (Normal Saline 0.9%) 1,000 mls @ 1,000 mls/hr IV BOLUS ONE Stop: 04/05/20 16:41 Last Infusion: 04/05/20 17:06 Dose: 0 mls/hr Documented by: Admin: 04/05/20 15:46 Dose: 1,000 mls/hr Documented by: SCANHARINDERO Metoclopramide HCl (Reglan) 10 mg IV NOW ONE Stop: 04/05/20 15:43 Last Admin: 04/05/20 15:46 Dose: 10 mg Documented by: SARTHAK Morphine Sulfate (Morphine) 2 mg IV NOW ONE Stop: 04/05/20 15:47 Last Admin: 04/05/20 15:48 Dose: 2 mg Documented by: SARTHAK Sucralfate (Carafate) 1 gm PO NOW ONE Stop: 04/05/20 15:36 Last Admin: 04/05/20 15:46 Dose: 1 gm Documented by: SARTHAK Vital Signs Vital signs: Vital Signs - 8 hr 04/05/20 13:20 04/05/20 15:20 Temperature 99.1 F Pulse Rate 86 68 Respiratory Rate 16 14 Blood Pressure 133/84 Blood Pressure [Left Arm] 136/87 Pulse Oximetry 97 98 <Nikunj Hernandez MD - Last Filed: 04/06/20 07:17> Orders Ordered: Discontinued Medications Diphenhydramine HCl (Benadryl) 50 mg IV NOW ONE Stop: 04/05/20 16:38 Last Admin: 04/05/20 16:46 Dose: 50 mg Documented by: SARTHAK Sodium Chloride (Normal Saline 0.9%) 1,000 mls @ 1,000 mls/hr IV BOLUS ONE Stop: 04/05/20 16:41 Last Infusion: 04/05/20 17:06 Dose: 0 mls/hr Documented by: Admin: 04/05/20 15:46 Dose: 1,000 mls/hr Documented by: SARTHAK Metoclopramide HCl (Reglan) 10 mg IV NOW ONE Stop: 04/05/20 15:43 Last Admin: 04/05/20 15:46 Dose: 10 mg Documented by: SARTHAK Morphine Sulfate (Morphine) 2 mg IV NOW ONE Stop: 04/05/20 15:47 Last Admin: 04/05/20 15:48 Dose: 2 mg Documented by: SARTHAK Sucralfate (Carafate) 1 gm PO NOW ONE Stop: 04/05/20 15:36 Last Admin: 04/05/20 15:46 Dose: 1 gm Documented by: SARTHAK Vital Signs Vital signs: Vital Signs - 8 hr 04/05/20 13:20 06/12/20 15:20 Temperature 99.1 F Pulse Rate 86 68 Respiratory Rate 16 14 Blood Pressure 133/84 Blood Pressure [Left Arm] 136/87 Pulse Oximetry 97 98 MDM - Abdominal Pain <Bsii MurilloANA PAULA osullivanP- - Last Filed: 04/05/20 17:23> Differential Diagnosis Differential diagnosis: Likely abdominal pain, constipation and small bowel obstruction Lab Data Result diagrams: 04/05/20 13:49 04/05/20 13:49 Labs: Lab Results 04/05/20 04/05/20 04/05/20 Range/Units 13:35 13:49 13:49 WBC 8.4 (4.5-11.0) X10^3/uL RBC 4.31 (4.0-5.2) X10^6/uL Hgb 12.7 (12.0-16.0) g/dL Hct 36.8 (36-46) % MCV 85.6 (80-100) fL MCH 29.5 (26-34) PG MCHC 34.5 (30-36) % RDW 13.0 (11.6-14.8) % Plt Count 366 (150-400) X10^3/uL Neut % (Auto) 67.4 (50-75) % Lymph % (Auto) 25.2 (25-40) % [place] % (Auto) 6.8 (3-14) % Eos % (Auto) 0.1 L (2-4) % Baso % (Auto) 0.5 (0-2) % Neut # (Auto) 5700 (0613-0020) /uL Lymph # (Auto) 2100 (1182-2648) /uL [place] # (Auto) 600 (0-900) /uL Eos # (Auto) 0 (0-450) /uL Baso # (Auto) 0 (0-100) /uL PT 13.2 H (10.1-12.7) SECONDS INR 1.2 (0.9-1.3) APTT 30 (26.4-36.2) SECONDS Sodium (137-145) mmol/L Potassium (3.4-5.1) mmol/L Chloride (98-107) mmol/L Carbon Dioxide (22-32) mmol/L BUN (7-17) mg/dL Creatinine (0.52-1.04) mg/dL Estimated GFR (>60) mL/min BUN/Creatinine Ratio (6-22) Glucose (70-100) mg/dL Calcium (8.4-10.2) mg/dL Total Bilirubin (0.2-1.3) mg/dL AST (14-36) IU/L ALT (<35) IU/L Alkaline Phosphatase (38-126) U/L Total Protein (6.3-8.2) g/dL Albumin (3.5-5.0) g/dL Globulin (1.7-4.1) g/dL Albumin/Globulin Ratio (1.0-2.8) Amylase (30-110) U/L Lipase (23-300) U/L Urine RBC 1-5/hpf D (0-5/HPF) Urine WBC None seen (0-5/HPF) Ur Squamous Epith Cells 10-30 /hpf H D (0-5/HPF) Urine Bacteria None seen (None) Urine Mucus 2+ H (Negative) Ur Culture Indicated? Cult not indicated 04/05/20 04/05/20 Range/Units 13:49 13:49 WBC (4.5-11.0) X10^3/uL RBC (4.0-5.2) X10^6/uL Hgb (12.0-16.0) g/dL Hct (36-46) % MCV (80-100) fL MCH (26-34) PG MCHC (30-36) % RDW (11.6-14.8) % Plt Count (150-400) X10^3/uL Neut % (Auto) (50-75) % Lymph % (Auto) (25-40) % [place] % (Auto) (3-14) % Eos % (Auto) (2-4) % Baso % (Auto) (0-2) % Neut # (Auto) (5559-1626) /uL Lymph # (Auto) (5800-1038) /uL [place] # (Auto) (0-900) /uL Eos # (Auto) (0-450) /uL Baso # (Auto) (0-100) /uL PT (10.1-12.7) SECONDS INR (0.9-1.3) APTT (26.4-36.2) SECONDS Sodium 138 (137-145) mmol/L Potassium 3.9 (3.4-5.1) mmol/L Chloride 106 (98-107) mmol/L Carbon Dioxide 24 (22-32) mmol/L BUN 7 (7-17) mg/dL Creatinine 0.56 (0.52-1.04) mg/dL Estimated GFR > 60.0 (>60) mL/min BUN/Creatinine Ratio 12.5 (6-22) Glucose 98 (70-100) mg/dL Calcium 9.5 (8.4-10.2) mg/dL Total Bilirubin 0.5 (0.2-1.3) mg/dL AST 21 (14-36) IU/L ALT 16 (<35) IU/L Alkaline Phosphatase 72 (38-126) U/L Total Protein 7.2 (6.3-8.2) g/dL Albumin 4.4 (3.5-5.0) g/dL Globulin 2.8 (1.7-4.1) g/dL Albumin/Globulin Ratio 1.6 (1.0-2.8) Amylase 52 (30-110) U/L Lipase 32 (23-300) U/L Urine RBC (0-5/HPF) Urine WBC (0-5/HPF) Ur Squamous Epith Cells (0-5/HPF) Urine Bacteria (None) Urine Mucus (Negative) Ur Culture Indicated? Point of care testing: Point of Care Testing Test Results Negative Urine Dip Bedside Urine Glucose Negative Bedside Urine Bilirubin - Negative Bedside Urine Ketone - Negative Urine Specific [place] 1.015 Bedside Urine Occult Blood ++ Bedside Urine pH 8.0 Bedside Urine Protein +/- 15 Bedside Urine Urobilinogen - Negative Bedside Urine Nitrite - Negative Bedside Urine Leukocytes - Negative Esterase Imaging Data Abdominal x-ray: Radiologist's Impression: [address] [place] [id number] XRay Report Signed Patient: Uzma Roy [facility]#: [id number] : 1995Acct:[id number] Age/Sex: 25 / FDate of Service: 04/05/20 Loc: ED Accession Number: [id number] Procedure: XR acute abdomen series Ordering Provider: Bisi Clements PROCEDURE: XR ACUTE ABDOMEN SERIES INDICATIONS: abd pain TECHNIQUE: One view chest and two views of the abdomen were acquired. COMPARISON: [facility], CR, XR ACUTE ABDOMEN SERIES, 01/11/2020, 11:57. FINDINGS: Surgical changes and devices: None. Chest: Lungs are clear. Heart size is normal. No pleural effusions. No pneumoperitoneum. Abdomen: No air-filled distended small bowel loops are identified demonstrating air-fluid levels. Air and stool are identified within the colon. No suspicious calcifications. Visualized solid organ contours appear normal. Bones: No suspicious bony lesions. IMPRESSION: 1. No bowel obstruction. 2. No acute cardiopulmonary process is evident. Dictated by: Danish Turk M.D. on 04/05/2020 at 13:45 Approved by: Danish Turk M.D. on 04/05/2020 at 13:46 US - abdomen: Radiologist's Impression: [address] [place] [id number] Ultrasound Report Signed Patient: Uzma Roy [facility]#: [id number] : 1995Acct:[id number] Age/Sex: 25 / FDate of Service: 04/05/20 Loc: ED Accession Number: [id number] Procedure: US abdomen limited Ordering Provider: Bisi Clements PROCEDURE: US ABDOMEN LIMITED INDICATIONS: RUQ PAIN TECHNIQUE: Real-time focused scanning was performed of the abdomen, with image documentation. COMPARISON: [facility], CT, CT ABDOMEN PELVIS W CON, 01/11/2020, 13:00. [facility], CR, XR ACUTE ABDOMEN SERIES, 04/05/2020, 13:58. FINDINGS: The liver is normal in size and demonstrates no focal lesions. No findings of gallstones or sludge are seen. The gallbladder wall is not thickened, measuring 3 mm or less. No specific pericholecystic fluid is seen. The sonographic Holbrook sign is negative. There is no biliary dilatation, the common bile duct measures 5 mm. The pancreas is not well-seen. IMPRESSION: The gallbladder demonstrates a normal sonographic appearance. No biliary dilatation is seen. Note: Concordant preliminary findings given by the research physiologist upon the completion of the examination to OLGA LIDIA Jung at 3 PM on April 05, 2020. Dictated by: Fidel Miller M.D. on 04/05/2020 at 14:29 Approved by: Fidel Miller M.D. on 04/05/2020 at 14:30 MDM Narrative Medical decision making narrative: The patient is a 25-year-old female with history of chronic abdominal pain who presents with a chief complaint of abdominal pain and concerned about her gallbladder today. Her labs came back with no acute findings, no leukocytosis. Ultrasound of her abdomen has no acute findings, no evidence of cholecystitis. The patient does state that she has been taking ibuprofen on top of her ulcer recently, though low doses. She does not have a surgical abdomen on exam, has afebrile, hemodynamically stable throughout her stay in the emergency department. She felt much better after the above-stated therapies, particularly the Carafate and Reglan. Thus I gave her prescriptions there of. I discussed at length the importance of following up with primary care provider in the next few days. Discussed at length coming back to the emergency department for any acute concerns. The patient states that she had plan to do an EGD and and there was talk of a drawer upfitter referral, though things fell off her plate during the coronavirus pandemic. I encouraged her to reconsider these options. Patient has no questions or concerns upon discharge and states understanding of return precautions as well as follow-up care. She has been hemodynamically stable throughout her stay in the emergency department. <Nikunj Hernandez MD - Last Filed: 04/06/20 07:17> Lab Data Labs: Lab Results 04/05/20 04/05/20 04/05/20 Range/Units 13:35 13:49 13:49 WBC 8.4 (4.5-11.0) X10^3/uL RBC 4.31 (4.0-5.2) X10^6/uL Hgb 12.7 (12.0-16.0) g/dL Hct 36.8 (36-46) % MCV 85.6 (80-100) fL MCH 29.5 (26-34) PG MCHC 34.5 (30-36) % RDW 13.0 (11.6-14.8) % Plt Count 366 (150-400) X10^3/uL Neut % (Auto) 67.4 (50-75) % Lymph % (Auto) 25.2 (25-40) % [place] % (Auto) 6.8 (3-14) % Eos % (Auto) 0.1 L (2-4) % Baso % (Auto) 0.5 (0-2) % Neut # (Auto) 5700 (7368-6292) /uL Lymph # (Auto) 2100 (7305-8360) /uL [place] # (Auto) 600 (0-900) /uL Eos # (Auto) 0 (0-450) /uL Baso # (Auto) 0 (0-100) /uL PT 13.2 H (10.1-12.7) SECONDS INR 1.2 (0.9-1.3) APTT 30 (26.4-36.2) SECONDS Sodium (137-145) mmol/L Potassium (3.4-5.1) mmol/L Chloride (98-107) mmol/L Carbon Dioxide (22-32) mmol/L BUN (7-17) mg/dL Creatinine (0.52-1.04) mg/dL Estimated GFR (>60) mL/min BUN/Creatinine Ratio (6-22) Glucose (70-100) mg/dL Calcium (8.4-10.2) mg/dL Total Bilirubin (0.2-1.3) mg/dL AST (14-36) IU/L ALT (<35) IU/L Alkaline Phosphatase (38-126) U/L Total Protein (6.3-8.2) g/dL Albumin (3.5-5.0) g/dL Globulin (1.7-4.1) g/dL Albumin/Globulin Ratio (1.0-2.8) Amylase (30-110) U/L Lipase (23-300) U/L Urine RBC 1-5/hpf D (0-5/HPF) Urine WBC None seen (0-5/HPF) Ur Squamous Epith Cells 10-30 /hpf H D (0-5/HPF) Urine Bacteria None seen (None) Urine Mucus 2+ H (Negative) Ur Culture Indicated? Cult not indicated 04/05/20 04/05/20 Range/Units 13:49 13:49 WBC (4.5-11.0) X10^3/uL RBC (4.0-5.2) X10^6/uL Hgb (12.0-16.0) g/dL Hct (36-46) % MCV (80-100) fL MCH (26-34) PG MCHC (30-36) % RDW (11.6-14.8) % Plt Count (150-400) X10^3/uL Neut % (Auto) (50-75) % Lymph % (Auto) (25-40) % [place] % (Auto) (3-14) % Eos % (Auto) (2-4) % Baso % (Auto) (0-2) % Neut # (Auto) (3667-5524) /uL Lymph # (Auto) (9118-9856) /uL [place] # (Auto) (0-900) /uL Eos # (Auto) (0-450) /uL Baso # (Auto) (0-100) /uL PT (10.1-12.7) SECONDS INR (0.9-1.3) APTT (26.4-36.2) SECONDS Sodium 138 (137-145) mmol/L Potassium 3.9 (3.4-5.1) mmol/L Chloride 106 (98-107) mmol/L Carbon Dioxide 24 (22-32) mmol/L BUN 7 (7-17) mg/dL Creatinine 0.56 (0.52-1.04) mg/dL Estimated GFR > 60.0 (>60) mL/min BUN/Creatinine Ratio 12.5 (6-22) Glucose 98 (70-100) mg/dL Calcium 9.5 (8.4-10.2) mg/dL Total Bilirubin 0.5 (0.2-1.3) mg/dL AST 21 (14-36) IU/L ALT 16 (<35) IU/L Alkaline Phosphatase 72 (38-126) U/L Total Protein 7.2 (6.3-8.2) g/dL Albumin 4.4 (3.5-5.0) g/dL Globulin 2.8 (1.7-4.1) g/dL Albumin/Globulin Ratio 1.6 (1.0-2.8) Amylase 52 (30-110) U/L Lipase 32 (23-300) U/L Urine RBC (0-5/HPF) Urine WBC (0-5/HPF) Ur Squamous Epith Cells (0-5/HPF) Urine Bacteria (None) Urine Mucus (Negative) Ur Culture Indicated? Point of care testing: Point of Care Testing Test Results Negative Urine Dip Bedside Urine Glucose Negative Bedside Urine Bilirubin - Negative Bedside Urine Ketone - Negative Urine Specific [place] 1.015 Bedside Urine Occult Blood ++ Bedside Urine pH 8.0 Bedside Urine Protein +/- 15 Bedside Urine Urobilinogen - Negative Bedside Urine Nitrite - Negative Bedside Urine Leukocytes - Negative Esterase Discharge Plan Departure Patient Disposition: Home Clinical Impression: Abdominal pain Qualifiers: Abdominal location: generalized Qualified Code(s): R10.84 - Generalized abdominal pain Discharge Date/Time: 04/05/20 17:29 Instructions: Gastroesophageal Reflux Disease (Alternative Therapy), DI for Abdominal Pain-Adult, GERD Diet Activity Restrictions/Additional Instructions: Thank you for trusting us with your care today As I discussed, your imaging and lab work came back with no acute findings. I have sent 3 prescriptions to [facility] in [place]. This includes Reglan, Zofran and Carafate Please follow-up with primary care provider in the next few days. It may be smart to follow through with your EGD, possible GI referral Please avoid ibuprofen Aleve and all other NSAIDs Please come back to the emergency department for any acute concerns Prescriptions: New metoclopramide HCl 10 mg tablet 10 mg PO Q6H PRN (Reason: nausea and vomiting) Qty: 14 RF: 0 ondansetron 4 mg tablet,disintegrating 4 mg PO Q6H PRN (Reason: nausea and vomiting) Qty: 20 RF: 0 sucralfate [Carafate] 100 mg/mL suspension 10 ml PO QACHS 10 Days Qty: 400 RF: 0 No Action ketorolac 10 mg tablet 10 mg PO Q6H PRN (Reason: pain) Qty: 14 RF: 0 pantoprazole [Protonix] 20 mg Tablet,Delayed Release (Dr/Ec) 20 mg PO DAILY RF: 0 sertraline 25 mg Tablet 25 mg PO DAILY RF: 0 bupropion HCl [Wellbutrin XL] 300 mg Tablet Extended Release 24 Hr 300 mg PO QAM RF: 0 ondansetron 4 mg tablet,disintegrating 4 mg PO Q6H PRN (Reason: nausea and vomiting) Qty: 14 RF: 0 Referrals: Chacha Beckford PA-C [Primary Care Provider] - Stand Alone Forms: Work Release Note
[2020-04-05] MEDS: diphenhydrAMINE 50 MG/ML VIAL IV (16:46)
[2020-04-05 17:22] VITALS: BP 139/83; PULSE 74; RESP 15; O2SAT 100
== END 2020-04-05 17:29 | disposition home or self-care (01) ==
PROVIDERS: Emergency Medicine; Emergency Provider Nurse Practitioner Family; PCP Physician Assistant
DX: R10.84 Generalized abdominal pain (principal)
CPT/HCPCS: 36415; 74022; 76705; 80053; 81003; 81015; 81025; 82150; 83690; 85025; 85610; 85730; 96361; 96374; 96375; 99284; J1200; J2270; J2765

== ENCOUNTER → 2020-04-30 09:32 | Outpatient (CLI) | payer OTHER, SELFPAY ==
[2020-05-01 02:01] LABS: COVID19 Sendout Not Detected (Not Detect)
== END ==
PROVIDERS: PCP Physician Assistant; Visit Provider Physician Assistant
DX: Z01.812 Encounter for preprocedural laboratory examination (principal)
CPT/HCPCS: 87635

== ENCOUNTER 2020-05-03 07:48 | Day surgery (SDC) | payer OTHER, SELFPAY ==
[2020-05-03] VITALS (7 sets, daily range): BP systolic 110–126; BP diastolic 60–79; PULSE 66–76; RESP 15–20; TEMP 36.2–36.7; O2SAT 98–100; BMI 27.4
[2020-05-03] MEDS: SODIUM CHLORIDE 0.9% 1,000 ML 200 ML IV (08:20)
--- NOTE | 2020-05-03 09:19 | PM.HP.1 ---
History of Present Illness History of Present Illness Date Patient Seen: 05/03/20 Time Patient Seen: 09:23 Chief complaint: [id number] Narrative: 25-year-old white female with the history going on several months of upper abdominal pain with some nausea and vomiting imaging of gallbladder with sonography and CT scanning is normal not sure that she has had a HIDA scan. She is here for an EGD denies melena or hematochezia or hematemesis Patient History Medical History Depression (Acute) History of ovarian cyst (Acute) Hx of cystitis (Acute) Hx of LEEP (loop electrosurgical excision procedure) of cervix complicating (Acute) Nausea and vomiting in adult (Acute) Patient denies significant medical history (Acute) Surgical History Hx of tonsillectomy (Acute) Hx of wisdom tooth extraction (Acute) Family & Social History Family History Grandfather Hypertension Heart disease Diabetes mellitus Mother Ovarian cancer Breast cancer Grandmother Diabetes mellitus Social History: household members significant other Tobacco & Substance use: Smoking Status Never smoker alcohol intake never alcohol intake frequency 0-2 drinks per day Substance Use Type does not use Meds Home Medications and Allergies Home Medications Medication Instructions Recorded Confirmed Type bupropion HCl [Wellbutrin XL] 300 mg PO QAM 01/11/20 05/03/20 History pantoprazole [Protonix] 20 mg PO DAILY 01/11/20 05/03/20 History ketorolac 10 mg PO Q6H PRN #14 tab 01/12/20 05/03/20 Rx metoclopramide HCl 10 mg PO Q6H PRN #14 tab 04/05/20 05/03/20 Rx ondansetron 4 mg PO Q6H PRN #20 tab 04/05/20 05/03/20 Rx omeprazole 20 mg capsule,delayed 20 mg PO DAILY 04/18/20 05/03/20 History release Allergies Allergy/AdvReac Type Severity Reaction Status Date / Time Androgenic Anabolic Steroid AdvReac Verified 05/03/20 07:40 Exam Vital Signs (past 8 hours): - 05/03/20 08:13 Temperature 98.1 F Pulse Rate 66 Respiratory Rate 20 Blood Pressure 126/77 Pulse Oximetry 99 Oxygen Delivery Method Room Air Narrative Exam Narrative: Patient is asymptomatic Lungs are clear heart regular rhythm no murmur audible today abdomen soft and nontender Assessment & Plan Assessment & Plan narrative: Patient is asymptomatic today is here for an EGD with history of vomiting.
[2020-05-03] MEDS: LIDOCAINE 4% SOLN 50 ML 20 ML TOP (09:32)
[2020-05-03] MEDS: MIDAZOLAM 5 MG/5 ML VIAL IV (09:40)
[2020-05-03] MEDS: fentaNYL 250 MCG/5 ML INJ IV (09:40)
--- NOTE | 2020-05-03 09:40 | PM.OP.ENDO ---
Operative Date/Time/Diagnoses Date of procedure: 05/03/20 Time of procedure: 09:40 Pre-op diagnosis: Abdominal pain and vomiting Post-op diagnosis: other (Suspect a gastric motility disorder. There was a copious amount of undigested food in her stomach from over 12 hours ago. No evidence of pyloric stenosis or any mechanical obstruction) Procedure & Clinicians Study performed: Esophagogastroduodenoscopy Same procedure as scheduled: Yes Indications: Vomiting abdominal pain Surgeon: Everardo Sterling Procedure Notes SCOAP/Timeout: This was done Procedure in detail: Patient was properly identified during surgical pause the flexible fiberoptic gastroscope inserted transorally from the hypopharynx into the upper duodenum. Esophagus is normal with the EG junction at 40 cm from the central incisors. Esophageal motility appeared normal and there is no esophageal ulceration. There is a copious amount of food in the gastric fundus and body of the stomach. This is from a meal last night over 12 hours ago. There is no evidence of pyloric stenosis the pylorus was wide open. The duodenal bulb 1st and 2nd portion of the duodenum were normal. There is no duodenal ulcer. No evidence of a mechanical obstruction. Scope withdrawal time: 5 Sedation minutes: 15 Findings: other findings (Gastric motility disorder.) Specimen(s): none sent Impression: Gastric motility disorder. No physical obstruction. Suggest gastric emptying study and suggest [facility]CK HIDA scan.
== END 2020-05-03 10:57 | disposition home or self-care (01) ==
PROVIDERS: PCP Physician Assistant; Referring Provider Surgery; Visit Provider Surgery
PROC: 0DJ08ZZ Inspection of Upper Intestinal Tract, Via Natural or Artificial Opening Endoscopic (ICD-10-PCS; CPT 43235; principal; 2020-05-03 09:15)
DX: K30 Functional dyspepsia (principal)
CPT/HCPCS: 43235; 99152; J2250; J3010

== ENCOUNTER → 2020-06-03 08:49 | Outpatient (CLI) | payer OTHER, SELFPAY ==
--- NOTE | 2020-06-03 08:50 | DI.NM.S_ITS ---
PROCEDURE: NM HIDA WITH CCK PHARMACEUTICAL: 5.2 mCi Tc-99m mebrofenin IV; 0.5 mcg CCK IV. INDICATIONS: epigastric pain, nausea/vomiting TECHNIQUE: Following intravenous administration of Tc-99m mebrofenin, sequential anterior abdominal images were obtained. To evaluate the contractile response of the gallbladder in response to Cholecystokinin (CCK), sincalide (0.02 ?g/kg) was administered by slow intravenous infusion approximately 60 minutes after the administration of the radiopharmaceutical. Sequential imaging was continued for 30 minutes after the start of CCK infusion. Gallbladder ejection fraction was calculated. COMPARISON: [facility], ABDOMEN LIMITED, 04/05/2020, 14:39. FINDINGS: Biliary scan: There is normal tracer uptake and excretion by the liver. There is normal visualization of the intrahepatic ducts, common bile duct, and gallbladder. There is normal tracer transit into the duodenum. CCK stimulation: There is normal contractile response of the gallbladder to CCK infusion. The calculated gallbladder ejection fraction is 79% ; normal values are above 35%. IMPRESSION: 1. Normal filling of gallbladder. No evidence for acute cholecystitis. 2. Normal contractile response of gallbladder to CCK stimulation. Dictated by: Rosy Zafar M.D. on 06/03/2020 at 11:53 Approved by: Rosy Zafar M.D. on 06/03/2020 at 11:54
== END ==
PROVIDERS: PCP Physician Assistant; Referring Provider Physician Assistant; Visit Provider Surgery
DX: R11.2 Nausea with vomiting, unspecified (principal); R10.13 Epigastric pain
CPT/HCPCS: 78227; A9537; J2805

== ENCOUNTER → 2020-06-10 07:16 | Outpatient (CLI) | payer OTHER, SELFPAY ==
--- NOTE | 2020-06-10 07:20 | DI.NM.S_ITS ---
PROCEDURE: NM GASTRIC EMPTYING STUDY RADIOPHARMACEUTICAL: 1 mCi Tc-99m sulfur colloid in an egg sandwich. INDICATIONS: Regurgitating undigested food; food in stomach on EGD TECHNIQUE: A Tc-99m labeled sulfur colloid labeled egg sandwich or oatmeal was served to the patient. Anterior and posterior planar images of the abdomen were obtained at 0 minutes and 30 minutes, then at hourly intervals up to 4 hours. The patient was upright and ambulating during the interval. COMPARISON: [facility], CT, CT ABDOMEN PELVIS W CON, 01/11/2020, 13:00. [facility], CR, XR ACUTE ABDOMEN SERIES, 04/05/2020, 13:58. [facility], US, US ABDOMEN LIMITED, 04/05/2020, 14:39. FINDINGS: The stomach has normal size, morphology, and position. There is normal emptying of solid gastric contents from the stomach by visual inspection. No gastroesophageal reflux is visualized. The percentage of tracer retained at specific time points are as follows: Time point Percent gastric retention Normal range 30 minutes 82% 70% or more 1 hour 60% 30% to 90% 2 hours 29% 60% or less 3 hours 18% 30% or less 4 hours 2% 10% or less IMPRESSION: Normal gastric emptying study. Dictated by: Rosy Zafar M.D. on 06/10/2020 at 11:54 Approved by: Rosy Zafar M.D. on 06/10/2020 at 11:55
== END ==
PROVIDERS: PCP Physician Assistant; Referring Provider Surgery; Visit Provider Surgery
DX: R11.10 Vomiting, unspecified (principal)
CPT/HCPCS: 78264; A9541